=== PATIENT | male | born 1970 | race African-American/Black ===

== ENCOUNTER 2020-02-11 23:54 | Emergency (ER) | payer OTHER ==
[~2020-02-11] VITALS: Ht 175.3 cm; Wt 77.1 kg
[2020-02-12 01:00] VITALS: BP 124/71
[2020-02-12] MEDS ORDERED: IBUPROFEN 800 MG TAB PO ONE (01:00)
== END 2020-02-12 01:40 ==
LOC: EDBD 23:54 → ER 23:58 → EEVIPCON 23:58 → ER 02-12 01:40
DX: G43.909 Migraine, unspecified, not intractable, without status migrainosus (principal)